=== PATIENT | female | born 1955 | race Caucasian/White ===

== ENCOUNTER 2022-03-24 01:31 | Inpatient (IN) | payer MEDICAID ==
[2022-03-24] VITALS (38 sets, daily range): BP systolic 87–145
[~2022-03-24] VITALS: Ht 165.1 cm; Wt 68.0 kg
--- NOTE | 2022-03-24 01:45 | NUR ---
Pt to bed 1 via EMS w/ c/o AMS and respiratory distress w/ GCS [address] [facility] w/ significant other. LKW: 1300. Pt given 1 mg Narcan at 0143 via IV w/ no response. Pt placed on pads, ekg monitor tech, and pulse oximeter. MD Gaona, Respiratory therapist, and all RNs and EMT staff in ER at bedside. MD Gaona to attempt intubation.
--- NOTE | 2022-03-24 01:48 | NUR ---
BVM applied via MD Gaona due to bradypnea RR @ 4.
--- NOTE | 2022-03-24 01:48 | NUR ---
1 mg Atropine verbal order per MD Candelaria due to HR 47
--- NOTE | 2022-03-24 01:53 | NUR ---
CPR initiated. EPi given. PEA on monitor w/ rate of 87. Refer to code sheet.
[2022-03-24] MEDS ORDERED: ETOMIDATE 20 MG/ 10 ML VIAL (AMIDATE) IVP ONE ×5 (02:15→12:29)
[2022-03-24] MEDS ORDERED: NALOXONE HCL 2 MG/2 ML SYR (NARCAN) IVP ONE (02:15)
[2022-03-24] MEDS ORDERED: PROPOFOL DRIP 100 ML IV ONE ×3 (02:15→17:42)
[2022-03-24] MEDS ORDERED: NACL 0.9% 1,000 ML IV ONE ×3 (02:15→08:15)
--- NOTE | 2022-03-24 02:29 | NUR ---
16 Fr carter placed
--- NOTE | 2022-03-24 02:35 | NUR ---
Pt to CT
[2022-03-24 02:44] LABS: HEMATOCRIT 43.8 % (36-48); HEMOGLOBIN 14.6 g/dL (12.0-16.0); MEAN CORPUSCULAR HEMOGLOBIN 31 pg (27-31); MEAN CORPUSCULAR HGB CONC 33 % (32-36); MEAN CORPUSCULAR VOLUME 94 fL (79.0-98.0); PLATELET COUNT (AUTO) 141 K/uL (130-430); RED BLOOD CELL COUNT(AUTO) 4.68 MIL/uL (4.2-6.2); RED CELL DISTRIBUTION WIDTH 13.1 % (9.0-15.0)
--- NOTE | 2022-03-24 02:45 | NUR ---
Pt back from CT
[2022-03-24] MEDS ORDERED: DEXTROSE 50% JECT 50 ML DISP.SYRIN ONE (02:51)
[2022-03-24] MEDS ORDERED: DEXTROSE 50% JECT 50 ML DISP.SYRIN IVP ONE (03:00)
[2022-03-24 03:03] LABS: ANION GAP 15 (5-15); CALCIUM 9.3 mg/dL (8.4-11.0); CHLORIDE 104 mmol/L (98-107); CREATININE 3.11 mg/dL (0.55-1.30); GFR AFRICAN AMERICAN 19 mL/min (>90); GLUCOSE 68 mg/dL (70-99); POTASSIUM 3.4 mmol/L (3.5-5.1); SODIUM SERUM 136 mmol/L (136-145); UREA NITROGEN, BLOOD 27 mg/dL (8-21)
[2022-03-24 03:05] LABS: WHITE BLOOD COUNT (AUTO) 31.8 K/uL (4.8-10.8)
[2022-03-24 03:06] LABS: BASOPHILS % (MANUAL) 0 % (0-2); EOSINOPHILS % (MANUAL) 1 % (0-7); LYMPHOCYTES % (MANUAL) 32 % (20-46); MONOCYTES % (MANUAL) 17 % (0-11)
[2022-03-24 03:08] LABS: INR 1.4 (0.8-1.2); PROTHROMBIN TIME 14.1 SECS (9.5-12.5)
[2022-03-24 03:11] LABS: ALANINE AMINOTRANSFERASE 29 U/L (12-78); ALBUMIN 3.3 g/dL (3.4-4.8); ASPARTATE AMINOTRANSFERASE 65 U/L (10-37); TOTAL BILIRUBIN 0.7 mg/dL (0.0-1.0)
[2022-03-24 03:17] LABS: ALCOHOL, BLOOD < 3 mg/dL (<10)
[2022-03-24 03:24] LABS: BILIRUBIN,URINE 1+ (NEGATIVE); BLOOD, URINE 2+ (NEGATIVE); CLARITY/URINE CLEAR (CLEAR); COLOR,URINE YELLOW (YELLOW); GLUCOSE,URINE NEGATIVE (NEGATIVE); KETONES,URINE TRACE (NEGATIVE); LEUKOCYTE ESTERASE ,URINE NEGATIVE (NEGATIVE); NITRITE, URINE NEGATIVE (NEGATIVE); PH,URINE 5.5 (5.0-8.0); PROTEIN URINE 1+ (NEGATIVE); UROBILINOGEN,URINE 0.2 (0.2-1.0)
--- NOTE | 2022-03-24 03:28 | NUR ---
Stanley at bedside for EKG at this time
[2022-03-24] MEDS ORDERED: ASPIRIN 300 MG/SUPP.RECT SUPP RC ONE ×2 (03:30→04:35)
[2022-03-24] MEDS ORDERED: LORazepam 2 MG/ML VIAL IVP ONE (03:30)
[2022-03-24] MEDS ORDERED: CEFEPIME 2 GM in D5W 100 ML IV ONE (03:30)
[2022-03-24 03:33] LABS: ACETAMINOPHEN < 1 ug/mL (1-30)
[2022-03-24] MEDS ORDERED: ACETAMINOPHEN 500 MG TABLET ONE (03:41)
--- NOTE | 2022-03-24 03:46 | NUR ---
Refer to MAR for orders
--- NOTE | 2022-03-24 03:46 | NUR ---
MD made aware of BP and temp
[2022-03-24 03:47] LABS: BACTERIA,URINE None Seen /HPF (None Seen); WBC,URINE 0-3 /HPF (0-3)
[2022-03-24 03:53] LABS: BARBITURATE, URINE NEGATIVE (NEG <=200); BENZODIAZEPINE, URINE NEGATIVE (NEG <=150); CANNABINOID, URINE NEGATIVE (NEG <=50); COCAINE, URINE NEGATIVE (NEG <=150); METHAMPHETAMINES SCREEN,URINE NEGATIVE (NEG <=500); OPIATE, URINE NEGATIVE (NEG <=100); PHENCYCLIDINE SCREEN,URINE NEGATIVE (NEG <=25); UR TRICYCLIC ANTIDEPRESSANTS NEGATIVE (NEG <=300); URINE AMPHETAMINE NEGATIVE (NEG <=500); URINE METHADONE NEGATIVE (NEG <=200); URINE OXYCODONE SCREEN NEGATIVE (NEG <=100); URINE PROPOXYPHENE SCREEN NEGATIVE (NEG <=300)
[2022-03-24] MEDS ORDERED: NOREPINEPHRINE 4 MG/4 ML VIAL IV ONE ×2 (03:57→09:23)
[2022-03-24] MEDS ORDERED: NOREPINEPHRINE BITARTRATE 4 MG in NS 246 ML IV ONE ×4 (04:00)
[2022-03-24] MEDS ORDERED: ACETAMINOPHEN 650 MG SUPP.RECT RC ONE (04:00)
[2022-03-24] MEDS ORDERED: KETOROLAC TROMETHAMINE 30 MG VIAL IVP ONE (04:00)
[2022-03-24] MEDS ORDERED: LINEZOLID 300 ML IV ONE (04:00)
[2022-03-24] MEDS ORDERED: HYDROCORTISONE SOD SUCC 100 MG/2 ML VIAL IVP ONE (04:30)
--- NOTE | 2022-03-24 04:41 | NUR ---
MD Gaona at bedside. Report given to MICHOACANO Corey.
--- NOTE | 2022-03-24 05:43 | NUR ---
Assisting Primary, MICHOACANO Corey with entering admission orders.
[2022-03-24] MEDS ORDERED: ACETAMINOPHEN 650 MG SUPP.RECT RC PRN (06:00)
[2022-03-24] MEDS ORDERED: IPRATROPIUM/ALBUTEROL SULFATE 3 ML AMPUL.NEB (DUONEB) INH PRN (06:00)
[2022-03-24] MEDS ORDERED: NACL 0.9% 1,000 ML IV SCH (06:00)
[2022-03-24] MEDS ORDERED: PIPERACILLIN/TAZO 3.375 GM in NS 50 ML IV ONE (06:00)
[2022-03-24] MEDS ORDERED: ONDANSETRON HCL 4 MG/2 ML VIAL IVP PRN (06:00)
--- NOTE | 2022-03-24 06:58 | NUR ---
pt arrived to ICU at 0620.
[2022-03-24] MEDS ORDERED: SODIUM BICARBONATE 8.4% JECT 50 MEQ/50 ML SYRINGE IVP ONE (08:15)
[2022-03-24] MEDS: IPRATROPIUM/ALBUTEROL SULFATE 3 ML AMPUL.NEB (DUONEB) INH SCH ×3 (08:29→21:34)
[2022-03-24] MEDS: PANTOPRAZOLE SODIUM 40 MG/VIAL (PROTONIX) IVP SCH (08:35)
--- NOTE | 2022-03-24 08:46 | NUR ---
pt arrived to ICU at 0620 intubated on propofol and Levophed. Pt's skin is intact, carter cath is empty, and the pt is on levophed to help stabilize her BP. Pt was not given the scheduled zosyn because it was not available in the short time frame but day shift nurse is aware for continued care of the patient.
[2022-03-24] MEDS ORDERED: VANCOMYCIN HCL 1,000 MG in NS 250 ML IV SCH (09:00)
[2022-03-24] MEDS: PROPOFOL DRIP 100 ML IV PRN ×2 (09:15→18:00)
--- NOTE | 2022-03-24 09:20 | NUR ---
PT WAS REINTUBATED ORALLY WITH 7.5 ETT @ 25cm LIP LINE BY DR GARCIA. BILAT B/S, CXR TO FALLOW.
--- NOTE | 2022-03-24 09:30 | NUR ---
Spoke with Dr. Varner and received orders for a stat consult with Dr. Starkey for a SBO.
--- NOTE | 2022-03-24 09:31 | NUR ---
Consult called with Dr. Starkey and I spoke with Renetta. I requested a stat consult two times during the call. She said she would page it out and the MD would get back with me.
[2022-03-24 09:40] LABS: THYROID STIMULATING HORMONE 68.34 uIu/mL (0.36-3.74)
--- NOTE | 2022-03-24 10:00 | NUR ---
Spoke with Dr. Varner who called and requested the consult with Dr. Starkey be cancelled due to wrong pt. Dr. Starkey's exchange notified. I spoke with Greyson.
[2022-03-24] MEDS: NOREPINEPHRINE BITARTRATE 8 MG in D5W 242 ML IV PRN ×2 (10:30→17:00)
[2022-03-24] MEDS ORDERED: ALBUMIN HUMAN 25% 100 ML IV ONE (11:00)
[2022-03-24] MEDS ORDERED: ROCURONIUM BROMIDE 10 MG/ML (ZEMURON) IV ONE (12:28)
[2022-03-24] MEDS: SODIUM BICARBONATE 8.4% JECT 150 MEQ in D5W 1,000 ML IVP SCH ×2 (12:29→20:58)
[2022-03-24] MEDS: HYDROCORTISONE SOD SUCC 100 MG/2 ML VIAL IVP SCH ×2 (15:10→20:58)
[2022-03-24 17:22] LABS: FREE T4 (FREE THYROXINE) 0.8 ng/dl (0.8-1.5)
--- NOTE | 2022-03-24 18:00 | NUR ---
0800- RECEIVED PATIENT ANURIC ON LEVO GTT 0.1 W MAPS 50S. TITRATION ACCORDINGLY TO ORDER. TEMP REPORTEDLY HIGH BUT NOW <98.0 SKIN WARM AND DRY 0830- CALLED DR RADHA MCNEAL 3 AM ABG AND ACIDOSIS. ORDER FOR BICARB AMP 1 IV PUSH AND VENT CHANGES. 0845- SPOKE TO DR PACHECO ABOUT NO UOP , ORDER FOR SALINE BOLUS. 0900- DR GARCIA HERE TO REINTUBATE PATIENT TO ORAL ETT 0920- REINTUBATED BY DR GARCIA 0943- NEW CENTRAL LINE TO LEFT JUGULAR 1015- ANTIBIOTICS GIVEN PER EMAR 1030- NEW LEVO GTT CONCENTRATION TO 8MG/250 SEE IV DRIP TITRATION 1035- DR CARRIZALES IN TO SEE PATIENT ORDER 1115- SPOKE TO DR GARCIA ABOUT ABG AND PEEP BACK TO 0 DUE TO PNEUMO. 1124- SPOKE TO DR MANUEL ABOUT ABG AND ORDER BICARB GTT, LABS IN EVENING 1215- SODIUM BICARB GTT STARTED, NS IVF CHANGE TO KVO 1300- ECHO COMPLETED, PATIENT HAS GOOD CARDIAC FUNCTION 1400- DR MANUEL IN TO SEE PATIENT UOP BRISK. NO FURTHER ORDERS 1630- PATIENT CHANGED ROOM TO ICU 3 1800- LEVO GTT DROPPED TO 0.1MCG DUE TO STABLE BP AND GOOD UOP. LABS TO FOLLOW FOR FOLLOW UP
--- NOTE | 2022-03-24 20:30 | NUR ---
assumed care recd report from todd jimenez rn for continuity of care
[2022-03-24 20:58] LABS: CALCIUM 7.2 mg/dL (8.4-11.0); CREATININE 3.05 mg/dL (0.55-1.30); POTASSIUM 3.8 mmol/L (3.5-5.1)
[2022-03-24 21:07] LABS: ALBUMIN 2.7 g/dL (3.4-4.8); PHOSPHORUS 3.5 mg/dL (2.7-4.5); TOTAL BILIRUBIN 0.6 mg/dL (0.0-1.0)
[2022-03-25] VITALS (45 sets, daily range): BP systolic 90–148
[2022-03-25] MEDS: IPRATROPIUM/ALBUTEROL SULFATE 3 ML AMPUL.NEB (DUONEB) INH SCH ×4 (00:53→19:40)
[2022-03-25] MEDS: PROPOFOL DRIP 100 ML IV PRN ×3 (01:26→17:40)
--- NOTE | 2022-03-25 02:00 | NUR ---
0200 LEVOPHED WEANED TO 0.08 MCG VSS. 0430 CHG BATH GIVEN SKIN CARE, ORAL CARE AND PERICARE DONE, TURN AND REPOSITION TO COMFORT. 0630 S/B DR. BELCHER PUT PEEP 5 CM H2O ON DRE SETTINGS, ADVISED TO SEDATION VACATION AND ASSESS FOR LOC, SHES WAKING UP AND OPENING EYES FOLLOWING COMMANDS AND PURPOSEFUL MOVEMENT NOTED. BACK ON SEDATION ADVISED.
[2022-03-25] MEDS: HYDROCORTISONE SOD SUCC 100 MG/2 ML VIAL IVP SCH ×3 (06:34→21:07)
--- NOTE | 2022-03-25 06:53 | NUR ---
GOT A CALL FROM [facility] IS POSITIVE
[2022-03-25 07:25] LABS: BASOPHILS # (AUTO) 0.1 K/uL (0.0-0.2); BASOPHILS % (AUTO) 0.3 % (0.0-2.0); HEMATOCRIT 39.6 % (36-48); HEMOGLOBIN 13.9 g/dL (12.0-16.0); LYMPHOCYTES # (AUTO) 1.3 K/uL (1.0-5.5); LYMPHOCYTES % (AUTO) 5.2 % (20.5-51.5); MEAN CORPUSCULAR HEMOGLOBIN 32 pg (27-31); MEAN CORPUSCULAR HGB CONC 35 % (32-36); MEAN CORPUSCULAR VOLUME 92 fL (79.0-98.0); NEUTROPHILS # (AUTO) 21.9 K/uL (1.8-7.7); PLATELET COUNT (AUTO) 86 K/uL (130-430); RED BLOOD CELL COUNT(AUTO) 4.33 MIL/uL (4.2-6.2); RED CELL DISTRIBUTION WIDTH 13.6 % (9.0-15.0); WHITE BLOOD COUNT (AUTO) 25.3 K/uL (4.8-10.8)
[2022-03-25 07:47] LABS: CREATININE 3.29 mg/dL (0.55-1.30); POTASSIUM 3.4 mmol/L (3.5-5.1)
[2022-03-25] MEDS ORDERED: HEPARIN SODIUM,PORCINE 5,000 UNITS/ML VIAL SUBCUT ONE (08:00)
[2022-03-25] MEDS ORDERED: NS 500 ML IV ONE (08:00)
[2022-03-25 08:04] LABS: CALCIUM 6.9 mg/dL (8.4-11.0)
[2022-03-25 08:07] LABS: ALBUMIN 2.5 g/dL (3.4-4.8); TOTAL BILIRUBIN 0.5 mg/dL (0.0-1.0)
[2022-03-25 08:50] LABS: NEUTROPHILS % (AUTO) 86.5 % (40.0-70.0)
[2022-03-25] MEDS: SODIUM BICARBONATE 8.4% JECT 150 MEQ in D5W 1,000 ML IVP SCH ×3 (09:46→23:43)
[2022-03-25] MEDS: PIPERACILLIN/TAZO 2.25G/DEX-IS 50 ML IV SCH ×4 (09:47→23:42)
[2022-03-25] MEDS: PANTOPRAZOLE SODIUM 40 MG/VIAL (PROTONIX) IVP SCH (09:59)
[2022-03-25] MEDS: LEVOTHYROXINE SODIUM 0.1 MG VIAL IVP SCH (10:00)
[2022-03-25] MEDS ORDERED: DEXTROSE 50%-WATER 50 ML DISP.SYRIN IVP PRN (10:30)
[2022-03-25] MEDS ORDERED: D5W 1,000 ML IV PRN (10:30)
[2022-03-25] MEDS ORDERED: GLUCOSE (DEXTROSE) ORAL GEL -Adults PO PRN (10:30)
[2022-03-25] MEDS ORDERED: INSULIN GLARGINE 100 UNITS/ML 10 ML VIAL SUBCUT ONE (10:45)
[2022-03-25] MEDS ORDERED: TOCILIZUMAB 400 MG in NS 100 ML IV ONE (11:00)
--- NOTE | 2022-03-25 11:22 | NUR ---
0955 TITRATED FI02 TO .30. SAT 95% RN AWARE. Addendum: 03/25/22 at 1122 by Joslyn Begum RT Amended: Links added.
--- NOTE | 2022-03-25 11:43 | NUR ---
ASSISTANT PROFESSOR OF DRAMA ACSW Sharri responded to a generated Social Service referral and reviewed previous notes and assessments an recognized missing contacts and patient information. ACSW consulted with assigned MICHOACANO Beauchamp who also shared they do not have contact information nor information related to patient's health history. ACSW consulted with Azul from admitting who provided PCP information. In an effort to obtain contact info for family and health information, ACSW contacted PCP [facility] . Amber with Kir[facility] shared they have patient listed as homeless, and provided the following numbers; - - NO ANSWER - - "NOT ABLE TO ACCEPTS CALLS AT THIS TIME" recording - [phone] - Jesus, listed as emergency contact, NON WORKING NUMBER Amber will also be faxing a their facesheet with patient's medical info. ACSW will continue to be available as needed Addendum: 03/25/22 at 1203 by Sharri GOETZ VILMA Harrell received fax from [facility] containing medical information. Copy was provided to DOG HAIR CLIPPERMICHOACANO Beauchamp and Photovoltaic Subcontractor Rosa for review. ACSW will continue to be available as needed
--- NOTE | 2022-03-25 12:41 | NUR ---
INFORMED BY LAB OF D-DIMER >5000. INFORMED PT'S PRIMARY RN CH OF RESULTS.
[2022-03-25] MEDS: AZITHROMYCIN 500 MG in NS 250 ML IV SCH (13:13)
[2022-03-25] MEDS: HEPARIN SODIUM,PORCINE 5,000 UNITS/ML VIAL SUBCUT SCH ×2 (13:16→21:10)
[2022-03-25 13:25] LABS: C-REACTIVE PROTEIN QUANT 44.6 mg/dL (0-0.5)
--- NOTE | 2022-03-25 15:41 | NUR ---
Wound Evaluation: Wound Consult ordered for Low Rosendo Score. Patient evaluated for a low Rosendo score of 14. Patient was sedated, nonverbal, nonresponsive to verbal commands, and received in a [place] Bed with an Atmos-Air 9000 mattress. Patient needs to be turned in bed. Skin is intact. Recommend reposition patient every 2 hours with pillow support. Elevate, off-load and float bilateral heels with pillows. Offload pressure areas with pillows for pressure re-distribution. Perform skin care and monitor skin integrity Q shift. Use moisture barrier cream on moisture susceptible areas QID and PRN for soiling. Place patient on a low air-loss mattress.
--- NOTE | 2022-03-25 22:00 | NUR ---
restless and keep moving in bed sedation propofol increased to 40mcg.,suctioned secretions obtain large kim brownish secretions via ett.
[2022-03-26] VITALS (42 sets, daily range): BP systolic 92–133
[2022-03-26] MEDS: IPRATROPIUM/ALBUTEROL SULFATE 3 ML AMPUL.NEB (DUONEB) INH SCH ×5 (02:58→23:21)
[2022-03-26] MEDS: PROPOFOL DRIP 100 ML IV PRN ×3 (05:15→18:30)
[2022-03-26] MEDS: PIPERACILLIN/TAZO 2.25G/DEX-IS 50 ML IV SCH ×4 (05:15→23:26)
[2022-03-26] MEDS: HEPARIN SODIUM,PORCINE 5,000 UNITS/ML VIAL SUBCUT SCH ×3 (05:17→21:25)
[2022-03-26] MEDS: HYDROCORTISONE SOD SUCC 100 MG/2 ML VIAL IVP SCH ×3 (05:17→21:25)
[2022-03-26 06:13] LABS: CREATININE 2.35 mg/dL (0.55-1.30)
[2022-03-26 06:20] LABS: BASOPHILS % (AUTO) 0.1 % (0.0-2.0); HEMATOCRIT 31.4 % (36-48); HEMOGLOBIN 11.2 g/dL (12.0-16.0); LYMPHOCYTES # (AUTO) 0.7 K/uL (1.0-5.5); LYMPHOCYTES % (AUTO) 4.7 % (20.5-51.5); MEAN CORPUSCULAR HEMOGLOBIN 32 pg (27-31); MEAN CORPUSCULAR HGB CONC 36 % (32-36); MEAN CORPUSCULAR VOLUME 89 fL (79.0-98.0); MONOCYTES # (AUTO) 0.5 K/uL (0.0-1.0); MONOCYTES % (AUTO) 3.5 % (1.7-9.3); NEUTROPHILS # (AUTO) 12.8 K/uL (1.8-7.7); NEUTROPHILS % (AUTO) 91.7 % (40.0-70.0); PLATELET COUNT (AUTO) 53 K/uL (130-430); RED BLOOD CELL COUNT(AUTO) 3.54 MIL/uL (4.2-6.2); RED CELL DISTRIBUTION WIDTH 13.6 % (9.0-15.0)
--- NOTE | 2022-03-26 06:25 | NUR ---
S/B Dr. Conroy on rounds,ordered to stop bicarb gtt and start tube feeding.
[2022-03-26 06:26] LABS: POTASSIUM 2.2 mmol/L (3.5-5.1)
[2022-03-26 06:27] LABS: ALBUMIN 2.2 g/dL (3.4-4.8); CALCIUM 6.4 mg/dL (8.4-11.0); TOTAL BILIRUBIN 0.6 mg/dL (0.0-1.0)
--- NOTE | 2022-03-26 06:35 | NUR ---
lab called for critical lab k-2.2 and Ca-6.[address] bui made him aware advised to call neprologist on the case. paged Dr. ramos awaiting for call back.
--- NOTE | 2022-03-26 06:43 | NUR ---
Called Dr Bang exchanged Dr alcocer is customer service consultant awaiting to call back.
[2022-03-26] MEDS ORDERED: POTASSIUM CHLORIDE 20 MEQ/PKT PACKET PO ONE (07:30)
[2022-03-26] MEDS ORDERED: NS 500 ML IV ONE (07:30)
[2022-03-26] MEDS: NACL 0.9% 1,000 ML IV SCH ×3 (08:31→23:27)
[2022-03-26] MEDS: PANTOPRAZOLE SODIUM 40 MG/VIAL (PROTONIX) IVP SCH (08:33)
[2022-03-26] MEDS: LEVOTHYROXINE SODIUM 0.1 MG VIAL IVP SCH (08:34)
[2022-03-26] MEDS: INSULIN GLARGINE 100 UNITS/ML 10 ML VIAL SUBCUT SCH (08:40)
[2022-03-26] MEDS: POTASSIUM CHLORIDE 40 MEQ in NS 250 ML IV SCH ×2 (08:41→13:23)
[2022-03-26] MEDS: ALBUMIN HUMAN 25% 50 ML IV SCH ×3 (10:33→18:28)
[2022-03-26] MEDS: AZITHROMYCIN 500 MG in NS 250 ML IV SCH (10:35)
--- NOTE | 2022-03-26 12:57 | NUR ---
Nutritional Screening High Risk Screening Consult Admitting Diagnosis Acute Respiratory Failure Reviewed Pertinent Medical/Surgical Hx Medical Record Medical History Comment: Per EMR: 66yF [facility] resident who presented to ED for increasingly altered mental status 03/24. Patient was given chest compressions in ED, intubated nasally, now intubated orally on vent. PMH includes: HTN, HLD, [place]'s dz, Hep C+, depression, osteoporosis/osteoarthritis, fibromyalgia, s/p lumbar spine surgery causing chronic pain. During admit: acute on CKD, elevated liver enzymes, thrombocytopenia, and dysphagia (given intubation/vent), resiratory failure, lactic acidosis, septic shock. SARS-CoV-2 Ag (rapid) Positive 03/25 Subjective Information Nutrition consult recieved for TF recommendations. Pt seen/discussed in ICU rounds. Propofol running @ 16.3 mL/hr (provides 430 additional kcal/day). Per discussion with primary RN, propofol will possibly be d/c tomorrow. Per am rounds, Levo d/c >24hrs ago, NS running @ 125mL and MD plans to give patient albumin today. Patient serum glucose has been trending extremely high, with BS consistently ranging >300-500. NGT in place, TF running Jevity 1.5 @ 20mL/hr. Current TF + Propofol regimen provides: 1150 kcal, 31g pro, and 365mL FW. Current Diet Order/Nutrition Support Jevity 1.5 @ 20mL x 24 hr (x 1 day) Patient/Significant Other Unable To Verbalize Education Provided Not Indicated Pertinent Medications KCl/NaCl, Albumim, Heparin, Synthroid, abx, hydrocortisone, prop, protonix Pertinent Labs Glu 328/511H, WBC 14H, RBC 3.5L, h/h 11.2/31.4L, K 2.2L, BUN/Cr 24/2.3H, Height (Feet) 5 feet Height (Inches) 5.00 inches Weight (Pounds) 150 pounds Weight (Calculated Kilograms) 68.957910 kilograms Patient Weight 68.039 kg Body Mass Index 24.96 kg/m2 %IBW [address] [place]/Adjusted Body Weight 125lb/57kg Recent Weight Change Unable to Verify Weight Status Appropriate Gastrointestinal Symptoms None Last Bowel Movement None since admit Difficulty With: Swallowing (intubation/vent) Food Allergies Unable to Verify Cultural/Ethnic/Buddhist Belief Unable to Verify Usual Diet At Home Unable to Verify Skin Integrity Comment: Rosendo 15: Skin Intact Current % PO Fair (50-74%) Estimated Energy Expenditure (kcals/day) 6895-5887 (25-30 kcal/kg d/t Normal BMI, vent) Estimated Protein Required (g/day) 54-68 (0.8-1.0 d/t acute on CKD) Estimated Fluid Required (l/day) per MD d/t acute on CKD Problem/Etiology/Signs/Symptoms * Altered nutrition-related lab values r/t suspected steroid medication a/e/b elevated glucose labs 03/25; 328, 511 (Initial) * Inadequate oral intake r/t TF order a/e/b current TF order provides <75% of low range est kcal needs and <60% of low range est protein needs (Initial) Expected Outcomes/Goals Enteral nutrition provides >85% of estimated nutrient needs, tolerate TF @ goal rate, BM q 1-3 days. skin integrity, weight maintenance Dietitian Recommendations * Consider adjust TF regimen: Glucerna 1.2 @ 50mL x 24h. --TF provides 1440 kcal (1870kcal w/propofol), 72g pro, and 966 FW. --This will provide patient with 100% estimated kcal and protein needs. * Rec Covid supplements: daily renavite, 250mg vitamin C, vitamin D, zincate 220mg BID x 14 days * Rec PRN bowel regimen Follow Up High Risk: F/U in 2-3days Follow Up By Mar 29, 2022 Alert Not Indicated Addendum: 03/26/22 at [address] Amended: Links added.
[2022-03-26] MEDS ORDERED: TOCILIZUMAB 400 MG in NS 100 ML IV ONE (13:00)
--- NOTE | 2022-03-26 13:01 | NUR ---
Dietitian Recommendations * Consider adjust TF regimen: Glucerna 1.2 @ 50mL x 24h. --TF provides 1440 kcal (1870kcal w/propofol), 72g pro, and 966 FW. --This will provide patient with 100% estimated kcal and protein needs. * Rec Covid supplements: daily renavite, 250mg vitamin C, vitamin D, zincate 220mg BID x 14 days * Rec PRN bowel regimen Please see Nutritional Assessment for details, thanks! CC, MPH, RDN
[2022-03-26] MEDS ORDERED: VANCOMYCIN HCL 500 MG in NS 100 ML IV SCH (14:00)
--- NOTE | 2022-03-26 19:00 | NUR ---
ASSUMED CARE RECD REPORT FROM MICHOACANO CH FOR CONTINUITY OF CARE.
--- NOTE | 2022-03-26 22:22 | NUR ---
2129 DUE MEDS GIVEN, TRANSFER TO RM 1 FOR ISOLATION NEGATIVE PRESSURE ROOM.REPORT GIVEN TO MARISSA RÍOS FOR CONTINUITY OF CARE.
--- NOTE | 2022-03-26 23:00 | NUR ---
TOOK OVER CARE BACK FROM [facility] FOR CONTINUITY OF CARE.
[2022-03-27] VITALS (32 sets, daily range): BP systolic 109–154
[2022-03-27] MEDS: PIPERACILLIN/TAZO 2.25G/DEX-IS 50 ML IV SCH (05:51)
[2022-03-27] MEDS: HYDROCORTISONE SOD SUCC 100 MG/2 ML VIAL IVP SCH ×3 (05:51→21:40)
[2022-03-27] MEDS: HEPARIN SODIUM,PORCINE 5,000 UNITS/ML VIAL SUBCUT SCH ×3 (05:52→21:38)
--- NOTE | 2022-03-27 06:07 | NUR ---
0430 CHG BATH DONE, PERICARE, SKIN CARE, ORAL SUCTIONED AND ORAL CARE DONE, TURN AND LINEN CHANGED AND REPOSITION TO COMFORT.
[2022-03-27 06:36] LABS: BASOPHILS % (AUTO) 0.3 % (0.0-2.0); EOSINOPHILS % (AUTO) 0.1 % (0.0-4.0); HEMATOCRIT 31.8 % (36-48); HEMOGLOBIN 11.4 g/dL (12.0-16.0); LYMPHOCYTES # (AUTO) 0.6 K/uL (1.0-5.5); LYMPHOCYTES % (AUTO) 5.6 % (20.5-51.5); MEAN CORPUSCULAR HEMOGLOBIN 32 pg (27-31); MEAN CORPUSCULAR HGB CONC 36 % (32-36); MEAN CORPUSCULAR VOLUME 90 fL (79.0-98.0); MONOCYTES # (AUTO) 0.4 K/uL (0.0-1.0); MONOCYTES % (AUTO) 3.6 % (1.7-9.3); NEUTROPHILS # (AUTO) 9.2 K/uL (1.8-7.7); NEUTROPHILS % (AUTO) 90.4 % (40.0-70.0); PLATELET COUNT (AUTO) 50 K/uL (130-430); RED BLOOD CELL COUNT(AUTO) 3.52 MIL/uL (4.2-6.2); RED CELL DISTRIBUTION WIDTH 13.6 % (9.0-15.0); WHITE BLOOD COUNT (AUTO) 10.1 K/uL (4.8-10.8)
--- NOTE | 2022-03-27 07:30 | NUR ---
ASSUMED CARE RECD REPORT FROM MICHOACANO MILLS FOR CONTINUITY OF CARE.
[2022-03-27] MEDS: IPRATROPIUM/ALBUTEROL SULFATE 3 ML AMPUL.NEB (DUONEB) INH SCH ×3 (07:42→19:42)
[2022-03-27] MEDS: LEVOTHYROXINE SODIUM 0.1 MG VIAL IVP SCH (08:54)
[2022-03-27] MEDS: PANTOPRAZOLE SODIUM 40 MG/VIAL (PROTONIX) IVP SCH (08:54)
[2022-03-27] MEDS: AZITHROMYCIN 500 MG in NS 250 ML IV SCH (08:55)
[2022-03-27] MEDS: INSULIN GLARGINE 100 UNITS/ML 10 ML VIAL SUBCUT SCH (08:58)
[2022-03-27 09:26] LABS: ALBUMIN 2.8 g/dL (3.4-4.8); CREATININE 1.63 mg/dL (0.55-1.30)
[2022-03-27] MEDS: NACL 0.9% 1,000 ML IV SCH ×3 (09:38→23:19)
[2022-03-27 10:50] LABS: CALCIUM 6.3 mg/dL (8.4-11.0); POTASSIUM 2.6 mmol/L (3.5-5.1)
--- NOTE | 2022-03-27 11:00 | NUR ---
Received call from dr. Marquez updated patient current condition and poc.
[2022-03-27] MEDS ORDERED: KCL 20 mEq in 100 mL (PREMIX) 100 ML IV ONE (11:30)
[2022-03-27] MEDS ORDERED: KCL 40 mEq in 100 mL (PREMIX) 100 ML IV ONE (11:30)
[2022-03-27] MEDS: PROPOFOL DRIP 100 ML IV PRN ×2 (11:55→15:30)
[2022-03-27] MEDS ORDERED: POTASSIUM CHLORIDE 20 MEQ/PKT PACKET PO ONE (12:00)
[2022-03-27] MEDS: NAFCILLIN SODIUM 2 GM in NS 100 ML IV SCH ×3 (12:03→23:19)
[2022-03-27] MEDS ORDERED: DEXMEDETOMIDINE HCL 400 MCG in NS 96 ML IV PRN (12:30)
[2022-03-27] MEDS ORDERED: POTASSIUM CHLORIDE 60 MEQ in NS 500 ML IV ONE (13:00)
--- NOTE | 2022-03-27 15:00 | NUR ---
HYGIENE: Patient had large greenish color bowel movement, good pericare provided. chg provided. Patient repositioned by staff every 2 hours with pillow support.OGT inserted. placement confirmed. pt has schedule for CT of the neck.
--- NOTE | 2022-03-27 16:35 | NUR ---
ENDORSED CARE TO CHICHI RN.
--- NOTE | 2022-03-27 18:00 | NUR ---
CT SCAN OF NECK DONE.
--- NOTE | 2022-03-27 18:10 | NUR ---
rt notes [address] scan via BVM 15L, no incident happened. pt saturating 98%.
--- NOTE | 2022-03-27 19:25 | NUR ---
BEDSIDE REPORT GIVEN TO LINA RÍOS.
[2022-03-28] VITALS (36 sets, daily range): BP systolic 119–165
[2022-03-28] MEDS: IPRATROPIUM/ALBUTEROL SULFATE 3 ML AMPUL.NEB (DUONEB) INH SCH ×4 (01:00→19:45)
[2022-03-28] MEDS: PROPOFOL DRIP 100 ML IV PRN (05:08)
[2022-03-28] MEDS: HYDROCORTISONE SOD SUCC 100 MG/2 ML VIAL IVP SCH ×3 (05:12→22:43)
[2022-03-28] MEDS: NAFCILLIN SODIUM 2 GM in NS 100 ML IV SCH ×3 (05:12→18:21)
[2022-03-28] MEDS: HEPARIN SODIUM,PORCINE 5,000 UNITS/ML VIAL SUBCUT SCH ×3 (05:13→22:51)
--- NOTE | 2022-03-28 06:28 | NUR ---
1999 PRECEDEX STARTED AT 0.2 MCG TOLERATING WELL PROPOFOL WEANING TOLERATED. VSS,AFEBRILE. TOLERATING TUBE FEEDING. HAD BMX1. 0400 CHG BATH DONE, TURN AND REPOSITION TO COMFORT.PROPOFOL WEAN TO 15 MCG TOLERATING WELL.
[2022-03-28 06:38] LABS: HEMATOCRIT 34.5 % (36-48); HEMOGLOBIN 12.1 g/dL (12.0-16.0); MEAN CORPUSCULAR HEMOGLOBIN 32 pg (27-31); MEAN CORPUSCULAR HGB CONC 35 % (32-36); MEAN CORPUSCULAR VOLUME 92 fL (79.0-98.0); PLATELET COUNT (AUTO) 57 K/uL (130-430); RED BLOOD CELL COUNT(AUTO) 3.77 MIL/uL (4.2-6.2); RED CELL DISTRIBUTION WIDTH 14.2 % (9.0-15.0); WHITE BLOOD COUNT (AUTO) 7.4 K/uL (4.8-10.8)
[2022-03-28 06:57] LABS: ALBUMIN 2.3 g/dL (3.4-4.8); CREATININE 1.32 mg/dL (0.55-1.30); PHOSPHORUS 3.1 mg/dL (2.7-4.5); POTASSIUM 3.8 mmol/L (3.5-5.1)
[2022-03-28] MEDS: NACL 0.9% 1,000 ML IV SCH (07:44)
[2022-03-28 08:12] LABS: CALCIUM 5.9 mg/dL (8.4-11.0); TOTAL BILIRUBIN 1.7 mg/dL (0.0-1.0)
[2022-03-28] MEDS: PANTOPRAZOLE SODIUM 40 MG/VIAL (PROTONIX) IVP SCH (09:02)
[2022-03-28] MEDS: LEVOTHYROXINE SODIUM 0.1 MG VIAL IVP SCH (09:06)
[2022-03-28] MEDS: INSULIN GLARGINE 100 UNITS/ML 10 ML VIAL SUBCUT SCH (09:13)
[2022-03-28] MEDS: AZITHROMYCIN 500 MG in NS 250 ML IV SCH (09:15)
[2022-03-28] MEDS ORDERED: FLOR.1 GT (11:11)
[2022-03-28] MEDS ORDERED: HYDR20TA PO (11:11)
[2022-03-28] MEDS ORDERED: PRO40 PO (11:11)
[2022-03-28] MEDS ORDERED: CALCIUM CHLORIDE 1 GM in NS 100 ML IV ONE (12:00)
[2022-03-28] MEDS: 0.45% NACL 1,000 ML IV SCH ×2 (12:24→22:42)
[2022-03-28 14:10] LABS: BAND % (MANUAL) 10 % (0-6); BASOPHILS % (MANUAL) 0 % (0-2); EOSINOPHILS % (MANUAL) 0 % (0-7); LYMPHOCYTES % (MANUAL) 10 % (20-46); MONOCYTES % (MANUAL) 7 % (0-11)
[2022-03-29] VITALS (30 sets, daily range): BP systolic 90–151
[2022-03-29] MEDS: NAFCILLIN SODIUM 2 GM in NS 100 ML IV SCH ×4 (00:46→17:39)
[2022-03-29] MEDS: IPRATROPIUM/ALBUTEROL SULFATE 3 ML AMPUL.NEB (DUONEB) INH SCH ×4 (01:05→23:25)
[2022-03-29] MEDS: HYDROCORTISONE SOD SUCC 100 MG/2 ML VIAL IVP SCH ×3 (06:33→21:31)
[2022-03-29] MEDS: HEPARIN SODIUM,PORCINE 5,000 UNITS/ML VIAL SUBCUT SCH ×3 (06:34→21:34)
--- NOTE | 2022-03-29 07:12 | NUR ---
RECEIVED REPORT FROM ENDORSING MANAGER NET RN FOR CONTINUITY OF CARE, PATIENT IS LYING ON BED WITH AN ivf OF 0.45 ns @ 100 MLS/HR.dIPRIVAN AT 20 MCG/KG/MIN, ON ac RATE OF 24, TIDAL VOLUME 400, fIO2 30 AND pEEP OF 3, tUBE FEEDING OF gLUCERNA 1.2 @ 35. SINGH CATHETER IN PLACE, YELLOW URINE IN COLOR DRAINING TO GRAVITY, VITAL SIGNS HEART RATE 50, RESPIRATORY RATE 24, OXYGEN SATURATION 91 AND BLOOD PRESSURE 108/44. NO SIGNS OF ACUTE DISTRESS NOTED AT THIS TIME. WILL CONTINUE TO MONITOR/
[2022-03-29] MEDS: 0.45% NACL 1,000 ML IV SCH ×2 (08:00→15:09)
[2022-03-29 08:11] LABS: ALBUMIN 2.4 g/dL (3.4-4.8); CREATININE 1.13 mg/dL (0.55-1.30)
[2022-03-29 08:42] LABS: POTASSIUM 2.6 mmol/L (3.5-5.1)
[2022-03-29 08:43] LABS: CALCIUM 6.8 mg/dL (8.4-11.0)
[2022-03-29] MEDS: PANTOPRAZOLE SODIUM 40 MG/VIAL (PROTONIX) IVP SCH (09:39)
[2022-03-29] MEDS: LEVOTHYROXINE SODIUM 0.1 MG VIAL IVP SCH (09:47)
[2022-03-29] MEDS: AZITHROMYCIN 500 MG in NS 250 ML IV SCH (09:47)
[2022-03-29] MEDS: INSULIN GLARGINE 100 UNITS/ML 10 ML VIAL SUBCUT SCH (10:22)
[2022-03-29] MEDS: PROPOFOL DRIP 100 ML IV PRN ×2 (10:23→21:43)
[2022-03-29] MEDS: NOREPINEPHRINE BITARTRATE 8 MG in D5W 242 ML IV PRN (10:33)
--- NOTE | 2022-03-29 10:33 | NUR ---
LEVOPHED STARTED AT 0.1 MCG/KG/MIN. PATIENT BLOOD PRESSURE IS 83/38, HEART RATE 63 AND OXYGEN SATURATION 95.
[2022-03-29] MEDS ORDERED: POTASSIUM CHLORIDE IV ONE (11:00)
[2022-03-29] MEDS ORDERED: NS 0.45% IV ONE (11:00)
[2022-03-29] MEDS ORDERED: CALCIUM CHLORIDE 1 GM in NS 100 ML IV ONE (11:30)
--- NOTE | 2022-03-29 15:56 | NUR ---
Nutrition F/U Admitting Diagnosis Acute Respiratory Failure Reviewed Pertinent Medical/Surgical Hx Medical Record Medical History Comment: Per EMR: 66 YOF [facility] 6 resident who presented to ED for increasingly altered mental status 03/24. Patient was given chest compressions in ED, intubated nasally, now intubated orally on vent. PMH includes: HTN, HLD, [place]'s dz, Hep C+, depression, osteoporosis/osteoarthritis, fibromyalgia, s/p lumbar spine Sx causing chronic pain. During admit: acute on CKD, elevated liver enzymes, thrombocytopenia, and dysphagia (given intubation/vent), respiratory failure, lactic acidosis, septic shock. SARS-CoV-2 Ag (Rapid) Positive 03/25 & COVID-19 ([facility]) Positive 03/26 Subjective Information: RD attended ICU rounds this morning. Per primary RN report, pt remains COVID+ under airborne isolation precautions; new orders for restraints; GRV 50 ml, tolerating TF well, Glucerna 1.2 at 35 ml/hr; water flush 150 ml Q6h; remains intubated/sedated on vent support; UO good w/ 700 ml out last night and 1 green/watery stool yesterday. RD witnessed TF infusing through glass window. Per EMR review, TF Intakes: 420 ml 03/29; TF Rate: 35 ml/hr 03/29; Glucerna 1.2 infusing 03/29; abd is soft w/ active bowel souns; LBM x1 03/29; new orders to increase TF rate to 50 ml/hr per GI notes/order. Current TF prescription is adequate/appropriate. Current Diet Order/Nutrition Support: Glucerna 1.2 at 50 ml/hr, Free Water Flush: 150 via OGT x0 days Patient/Significant Other Unable To Verbalize Education Provided Not Indicated Pertinent Medications: lantus, keppra, synthroid, solu-cortef, propofol at 8.165 ml/hr, protonix IV, levophed Pertinent Labs: BG 124 H, POC BG 167 H, WBC 7.4 WNL, RBC 3.77 L, H/H 12.1 WNL/34.5 L, K 2.6 L, BUN 28 H, CRE 1.13 WNL Height (Feet) 5 feet Height (Inches) 5.00 inches Weight (Pounds) 150 pounds -- stable since 03/26 Patient Weight 68.039 kg Body Mass Index 24.96 kg/m2 %IBW [address] [place]/Adjusted Body Weight 125#/57 kg Recent Weight Change Unable to Verify Weight Status Appropriate Gastrointestinal Symptoms None Difficulty With: Swallowing Food Allergies Unable to Verify Cultural/Ethnic/Gnosticism Belief Unable to Verify Usual Diet At Home Unable to Verify Skin Integrity Comment: Rosendo 14; per Rehabilitation Medicine Physician note 03/25: skin is intact Estimated Energy Expenditure (kcals/day) 6228-8616 (25-30 kcal/kg CBW d/t Normal BMI, vent) NEW Estimated Protein Required (g/day) 54-82 (0.8-1.2 gm/kg CBW d/t acute on CKD, acute illness) Estimated Fluid Required (l/day) Per MD d/t CKD Problem/Etiology/Signs/Symptoms Altered nutrition-related lab values r/t suspected steroid medication a/e/b elevated glucose labs. *Ongoing w/ improvement Inadequate oral intake r/t TF order a/e/b current TF order provides <75% of low range est kcal needs and <60% of low range est protein needs. *Met Expected Outcomes/Goals Enteral nutrition provides >85% of estimated nutrient needs, tolerate TF at goal rate, BM q 1-3 days, skin integrity, weight maintenance Dietitian Recommendations * Continue Glucerna 1.2 at 50 ml/hr via OGT Provides (w/ current propofol infusion rate: 1656 kcal/day, 72 gm protein/day, and 966 ml free water/day Meets (w/ current propofol infusion rate): 97% of lower end of estimated caloric needs and 88% of upper end of estimated protein needs * Free Water Flush: per physician d/t CKD * COVID supplements: daily renavite, 250 mg VIT C, VIT D, zincate 220 mg BID x14 days Follow Up High Risk: F/U in 2-3 days
--- NOTE | 2022-03-29 16:06 | NUR ---
Dietitian Recommendations * Continue Glucerna 1.2 at 50 ml/hr via OGT Provides (w/ current propofol infusion rate: 1656 kcal/day, 72 gm protein/day, and 966 ml free water/day Meets (w/ current propofol infusion rate): 97% of lower end of estimated caloric needs and 88% of upper end of estimated protein needs * Free Water Flush: per physician d/t CKD * COVID supplements: daily renavite, 250 mg VIT C, VIT D, zincate 220 mg BID x14 days LP, MS, RD Please refer to Nutrition F/U for details.
[2022-03-29] MEDS: KCL 20 mEq in D5W 1000 mL 1,000 ML IV SCH (17:39)
[2022-03-30] VITALS (23 sets, daily range): BP systolic 126–171
[2022-03-30] MEDS: NAFCILLIN SODIUM 2 GM in NS 100 ML IV SCH ×4 (00:58→17:35)
[2022-03-30] MEDS: KCL 20 mEq in D5W 1000 mL 1,000 ML IV SCH ×3 (01:15→22:47)
[2022-03-30] MEDS: HYDROCORTISONE SOD SUCC 100 MG/2 ML VIAL IVP SCH ×3 (06:52→22:47)
[2022-03-30] MEDS: HEPARIN SODIUM,PORCINE 5,000 UNITS/ML VIAL SUBCUT SCH ×3 (06:55→22:48)
--- NOTE | 2022-03-30 07:04 | NUR ---
RECEIVED REPORT FROM ENDORSING SENIOR EDITOR RN FOR CONTINUITY OF CARE, PATIENT LYING ON BED WITH AN IVF OF KCL 20MEQ IN D5 @ 100 ML/HR.DIPRIVAN @ 10 MCG/KG/MIN. ON AC RATE OF 24, TIDAL VOLUME 400, FIO2 OF 35 AND PEEP OF 5, RESTRAINTS IN PLACE IN BOTH WRIST, TUBE FEEDING IN PLACE GLUCERNA 1.2 @ 35 CC/HR, CHECKED RESIDUAL . SINGH CATHETER IN PLACE, YELLOW URINE COLOR DRAINING TO GRAVITY, VITALS SIGNS HEART RATE 56, RESPIRATORY RATE 25, OXYGEN SATURATION 97, TEMPERATURE 97.6, BLOOD PRESSURE 140/62. NO SIGNS OF ACUTE DISTRESS NOTED AT THIS TIME, WILL CONTINUE TO MONITOR.
[2022-03-30 07:17] LABS: CALCIUM 7.3 mg/dL (8.4-11.0); CREATININE 1.06 mg/dL (0.55-1.30)
[2022-03-30 08:08] LABS: POTASSIUM 2.9 mmol/L (3.5-5.1)
[2022-03-30] MEDS: IPRATROPIUM/ALBUTEROL SULFATE 3 ML AMPUL.NEB (DUONEB) INH SCH ×3 (08:08→20:21)
--- NOTE | 2022-03-30 08:21 | NUR ---
0750 PLACED PT ON CPAP 5 PS 10. RN AWARE. PT TOLERATING. Addendum: 03/30/22 at 0822 by Joslyn Begum RT Amended: Links added.
[2022-03-30] MEDS ORDERED: D5W IV ONE (09:00)
[2022-03-30] MEDS ORDERED: POTASSIUM CHLORIDE IV ONE (09:00)
[2022-03-30] MEDS: PANTOPRAZOLE SODIUM 40 MG/VIAL (PROTONIX) IVP SCH (09:43)
[2022-03-30] MEDS: LEVOTHYROXINE SODIUM 0.1 MG VIAL IVP SCH (09:44)
--- NOTE | 2022-03-30 09:53 | NUR ---
STARTED CPAP 5, PRESSURE SUPPORT 10 30% STARTED AT 0750 AND LASTED AT 0953, PATIENT OXYGEN SATURATION 96-98%
[2022-03-30] MEDS: INSULIN GLARGINE 100 UNITS/ML 10 ML VIAL SUBCUT SCH (10:01)
--- NOTE | 2022-03-30 10:25 | NUR ---
IS AT THE BEDSIDE ASSESSING THE PATIENT, ORDERED TO HOLD THE DIPRIVAN AND STARTED AGAIN THE CPAP TRIAL 5, PRESSURE SUPPORT 10. PATIENT HEASRT RATE 57, RESPIRATORY RATE 15, BLOOD PRESSURE 148/71 AND OXYGEN SATURATION 97. WILL CONTINUE TO MONITOR.
--- NOTE | 2022-03-30 10:45 | NUR ---
rt notes 0925 titrated FIO2 to 30%. Per MD Conroy do ABG on CPAP mode. will cont to monitor pt.
[2022-03-30] MEDS: POTASSIUM CHLORIDE IV SCH ×3 (10:53→14:54)
[2022-03-30] MEDS: [UNRECOGNIZED DRUG - OTHER] IV SCH ×3 (10:53→14:54)
--- NOTE | 2022-03-30 16:00 | NUR ---
RT NOTES 1600 Pt got extubated, placed on 3LNC. pt saturating 94%. sxn'd pt prior/post extubation (small/thick/yellow) secretions. No resp distress noted. Encourage pt to do deep breathing, spit secretion if possible. RN Gael at bedside assisted extubation. will cont to monitor pt.
[2022-03-31] VITALS (22 sets, daily range): BP systolic 120–165
[2022-03-31] MEDS: NAFCILLIN SODIUM 2 GM in NS 100 ML IV SCH ×4 (01:06→18:07)
[2022-03-31] MEDS: IPRATROPIUM/ALBUTEROL SULFATE 3 ML AMPUL.NEB (DUONEB) INH SCH ×3 (01:40→12:00)
[2022-03-31] MEDS: HYDROCORTISONE SOD SUCC 100 MG/2 ML VIAL IVP SCH ×3 (06:13→22:00)
[2022-03-31] MEDS: HEPARIN SODIUM,PORCINE 5,000 UNITS/ML VIAL SUBCUT SCH ×3 (06:14→22:00)
[2022-03-31 07:01] LABS: BASOPHILS % (AUTO) 0.5 % (0.0-2.0); EOSINOPHILS # (AUTO) 0.4 K/uL (0.0-0.4); EOSINOPHILS % (AUTO) 4.8 % (0.0-4.0); HEMATOCRIT 34.7 % (36-48); HEMOGLOBIN 12.2 g/dL (12.0-16.0); LYMPHOCYTES # (AUTO) 1.4 K/uL (1.0-5.5); LYMPHOCYTES % (AUTO) 16.8 % (20.5-51.5); MEAN CORPUSCULAR HEMOGLOBIN 32 pg (27-31); MEAN CORPUSCULAR HGB CONC 35 % (32-36); MEAN CORPUSCULAR VOLUME 92 fL (79.0-98.0); MONOCYTES # (AUTO) 0.3 K/uL (0.0-1.0); MONOCYTES % (AUTO) 3.6 % (1.7-9.3); NEUTROPHILS # (AUTO) 6.3 K/uL (1.8-7.7); NEUTROPHILS % (AUTO) 74.3 % (40.0-70.0); PLATELET COUNT (AUTO) 106 K/uL (130-430); RED BLOOD CELL COUNT(AUTO) 3.77 MIL/uL (4.2-6.2); WHITE BLOOD COUNT (AUTO) 8.4 K/uL (4.8-10.8)
--- NOTE | 2022-03-31 07:07 | NUR ---
received report from endorsing shift commander RN for continuity of care, patient lying on bed with an IVF of KCL in D5 @ 100 cc/hr. no signs of acute distress noted at this time, on 2 L of oxygen nasal cannula, Diego catheter in place draining to gravity, yellow urine in color, patient vitals heart rate 66, respiratory rate 20, oxygen saturation 93,,blood pressure 161/69. will continue to monitor.
[2022-03-31] MEDS: KCL 20 mEq in D5W 1000 mL 1,000 ML IV SCH ×2 (07:15→15:50)
[2022-03-31 08:17] LABS: ALBUMIN 2.2 g/dL (3.4-4.8); CALCIUM 7.4 mg/dL (8.4-11.0); CREATININE 0.9 mg/dL (0.55-1.30); TOTAL BILIRUBIN 0.8 mg/dL (0.0-1.0)
[2022-03-31] MEDS ORDERED: FUROSEMIDE 20 MG/2 ML VIAL IVP ONE (08:45)
[2022-03-31] MEDS: PANTOPRAZOLE SODIUM 40 MG/VIAL (PROTONIX) IVP SCH (08:47)
[2022-03-31] MEDS: LEVOTHYROXINE SODIUM 0.1 MG VIAL IVP SCH (08:50)
[2022-03-31] MEDS: INSULIN GLARGINE 100 UNITS/ML 10 ML VIAL SUBCUT SCH (08:55)
[2022-03-31] MEDS ORDERED: POTASSIUM CHLORIDE 40 MEQ in NS 250 ML IV ONE (10:00)
[2022-03-31] MEDS: ALBUTEROL MDI INHALATION 8 GM INH INH SCH ×2 (16:16→19:32)
[2022-03-31] MEDS: NORMAL SALINE 5 ML DISP.SYRIN IVF SCH (22:00)
[2022-04-01] VITALS (24 sets, daily range): BP systolic 120–162
[2022-04-01] MEDS: NAFCILLIN SODIUM 2 GM in NS 100 ML IV SCH ×4 (00:44→18:17)
[2022-04-01] MEDS: ALBUTEROL MDI INHALATION 8 GM INH INH SCH ×4 (01:21→20:15)
[2022-04-01 06:28] LABS: BASOPHILS % (AUTO) 0.2 % (0.0-2.0); EOSINOPHILS # (AUTO) 0.3 K/uL (0.0-0.4); EOSINOPHILS % (AUTO) 3.4 % (0.0-4.0); HEMATOCRIT 34.2 % (36-48); LYMPHOCYTES # (AUTO) 3.1 K/uL (1.0-5.5); LYMPHOCYTES % (AUTO) 34.5 % (20.5-51.5); MEAN CORPUSCULAR HEMOGLOBIN 32 pg (27-31); MEAN CORPUSCULAR HGB CONC 35 % (32-36); MEAN CORPUSCULAR VOLUME 92 fL (79.0-98.0); MONOCYTES # (AUTO) 0.8 K/uL (0.0-1.0); MONOCYTES % (AUTO) 8.6 % (1.7-9.3); NEUTROPHILS # (AUTO) 4.8 K/uL (1.8-7.7); NEUTROPHILS % (AUTO) 53.3 % (40.0-70.0); PLATELET COUNT (AUTO) 141 K/uL (130-430); RED BLOOD CELL COUNT(AUTO) 3.73 MIL/uL (4.2-6.2); RED CELL DISTRIBUTION WIDTH 13.2 % (9.0-15.0); WHITE BLOOD COUNT (AUTO) 8.9 K/uL (4.8-10.8)
[2022-04-01] MEDS: NORMAL SALINE 5 ML DISP.SYRIN IVF SCH ×3 (06:29→22:07)
[2022-04-01] MEDS: HEPARIN SODIUM,PORCINE 5,000 UNITS/ML VIAL SUBCUT SCH ×3 (06:29→22:07)
[2022-04-01] MEDS: HYDROCORTISONE SOD SUCC 100 MG/2 ML VIAL IVP SCH ×3 (06:29→22:05)
[2022-04-01 07:34] LABS: ALBUMIN 2.1 g/dL (3.4-4.8); CREATININE 0.9 mg/dL (0.55-1.30); TOTAL BILIRUBIN 0.8 mg/dL (0.0-1.0)
--- NOTE | 2022-04-01 07:40 | NUR ---
ON DUTY RECEIVED PT A/XO4. EXTUBATED 2 DAYS AGO, PT TOLERATED WELL. WAITING FOR TRANSFER TO TELE. STILL KEEP NPO FOR SWALLOW EVAL TODAY. NO S/S OF ACUTE DISTRESS.
[2022-04-01] MEDS: INSULIN GLARGINE 100 UNITS/ML 10 ML VIAL SUBCUT SCH (08:55)
[2022-04-01] MEDS: PANTOPRAZOLE SODIUM 40 MG/VIAL (PROTONIX) IVP SCH (08:56)
[2022-04-01 09:02] LABS: CALCIUM 7.3 mg/dL (8.4-11.0); POTASSIUM 2.5 mmol/L (3.5-5.1)
[2022-04-01] MEDS ORDERED: KCL 20 mEq in 100 mL (PREMIX) 100 ML IV ONE (10:15)
[2022-04-01] MEDS ORDERED: KCL 40 mEq in 100 mL (PREMIX) 100 ML IV ONE (12:15)
--- NOTE | 2022-04-01 16:23 | NUR ---
ST EVALUATION COMPLETED. ST TX NOT INDICATED AT THIS TIME. RECOMMEND PO DIET OF MECHANICAL SOFT AND THIN LIQUIDS. RECOMMEND DISTANT SUPERVISION AND FULL ASPIRATION PRECAUTIONS.
--- NOTE | 2022-04-01 16:53 | NUR ---
Nutrition F/U RDN reviewed pts current EMR record including diet hx, physician notes, nursing notes, pertinent labs/meds/procedures, care trends, and care activity. Admission Dx: Acute Respiratory Failure PMH: Per EMR -- 66yF [facility] 6 resident who presented to ED for increasingly altered mental status 03/24. Patient was given chest compressions in ED, intubated nasally, now intubated orally on vent. PMH includes: HTN, HLD, [place]'s dz, Hep C+, depression, osteoporosis/osteoarthritis, fibromyalgia, s/p lumbar spine Sx causing chronic pain. During admit: acute on CKD, elevated liver enzymes, thrombocytopenia, and dysphagia (given intubation/vent), respiratory failure, lactic acidosis, septic shock. SARS-CoV-2 Ag (Rapid) Positive 03/25 & COVID-19 ([facility]) Positive 03/26. Subjective information: RD attended ICU rounds this am. The patient was extubated on 03/31. Per RN, patient was NPO pending swallow eval, awake and oriented, and awaiting telly transfer. Per chart review: s/p swallow eval this afternoon 04/01, per ST: mechanical soft with thin liquids. MD notes: septic shock has resolved, and patient is feeling very hungry and thirsty. Current diet order/ Nutrition support: Cardiac, Mechanical Soft Diet with Thin Liquids x 0 day Current % PO 0% -- Patient previously NPO on TF, no meals documented d/t diet change Estimated Energy Expenditure (kcals/day) 6823-3779 (25-30 kcal/kg CBW d/t Normal BMI, vent) NEW Estimated Protein Required (g/day) 54-82 (0.8-1.2 gm/kg CBW d/t acute on CKD, acute illness) Estimated Fluid Required (l/day) Per MD d/t CKD Problem/Etiology/Signs/Symptoms * Altered nutrition-related lab values r/t suspected steroid medication a/e/b elevated glucose labs. (Ongoing w/ improvement) * Inadequate oral intake r/t TF order a/e/b current TF order provides <75% of low range est kcal needs and <60% of low range est protein needs. (Resolved) Expected Outcomes/Goals PO intake provides >85% of estimated nutrient needs, tolerate diet advancement, BM q 1-3 days, skin integrity, weight maintenance Dietitian Recommendations * Continue Cardiac diet, MSoft with Thin Liquids per ST * COVID supplements: daily renavite, 250 mg VIT C, VIT D, zincate 220 mg BID x14 days High Risk F/U in 2-3days: 04/03- 04/04
--- NOTE | 2022-04-01 16:56 | NUR ---
Dietitian Recommendations * Continue Cardiac diet, MSoft with TL per ST * COVID supplements: daily renavite, 250 mg VIT C, VIT D, zincate 220 mg BID x14 days Please see Nutrition F/U for details, thanks! CC, MPH, RDN
--- NOTE | 2022-04-01 19:00 | NUR ---
received pt from outgoing nurse, alert and oriented x 4.appears drowsy.vitals updated,fall precautions maintained
--- NOTE | 2022-04-01 19:55 | NUR ---
DR. ROOSEVELT KATZ PAGED AT THIS TIME FOR ORDERS. SPOKE WITH GARDENIA AT THE EXCHANGE.
[2022-04-02] VITALS (15 sets, daily range): BP systolic 127–163
--- NOTE | 2022-04-02 | NUR ---
Asleep ,vitals acceptable.pt verbalize understanding of care given
[2022-04-02] MEDS: NAFCILLIN SODIUM 2 GM in NS 100 ML IV SCH ×5 (00:03→23:43)
[2022-04-02] MEDS: ALBUTEROL MDI INHALATION 8 GM INH INH SCH ×4 (01:04→19:57)
--- NOTE | 2022-04-02 06:00 | NUR ---
bed bath given and linen changed ,educated on medications, is alert and oriented x 4
[2022-04-02 06:10] LABS: BASOPHILS % (AUTO) 0.1 % (0.0-2.0); EOSINOPHILS # (AUTO) 0.1 K/uL (0.0-0.4); EOSINOPHILS % (AUTO) 0.6 % (0.0-4.0); HEMATOCRIT 34.8 % (36-48); HEMOGLOBIN 12.1 g/dL (12.0-16.0); LYMPHOCYTES # (AUTO) 1.2 K/uL (1.0-5.5); LYMPHOCYTES % (AUTO) 8.7 % (20.5-51.5); MEAN CORPUSCULAR HEMOGLOBIN 32 pg (27-31); MEAN CORPUSCULAR HGB CONC 35 % (32-36); MEAN CORPUSCULAR VOLUME 91 fL (79.0-98.0); MONOCYTES # (AUTO) 0.6 K/uL (0.0-1.0); NEUTROPHILS % (AUTO) 86.6 % (40.0-70.0); PLATELET COUNT (AUTO) 163 K/uL (130-430); RED BLOOD CELL COUNT(AUTO) 3.82 MIL/uL (4.2-6.2); RED CELL DISTRIBUTION WIDTH 13.6 % (9.0-15.0); WHITE BLOOD COUNT (AUTO) 13.8 K/uL (4.8-10.8)
[2022-04-02] MEDS: HYDROCORTISONE SOD SUCC 100 MG/2 ML VIAL IVP SCH ×3 (06:18→21:31)
[2022-04-02] MEDS: HEPARIN SODIUM,PORCINE 5,000 UNITS/ML VIAL SUBCUT SCH ×3 (06:23→21:32)
[2022-04-02] MEDS: NORMAL SALINE 5 ML DISP.SYRIN IVF SCH ×3 (06:24→21:39)
[2022-04-02] MEDS: LEVOTHYROXINE SODIUM 0.15 MG TABLET PO SCH (06:33)
[2022-04-02 07:26] LABS: ALBUMIN 2.4 g/dL (3.4-4.8); CALCIUM 7.4 mg/dL (8.4-11.0); CREATININE 0.89 mg/dL (0.55-1.30); TOTAL BILIRUBIN 1.1 mg/dL (0.0-1.0)
[2022-04-02] MEDS: INSULIN GLARGINE 100 UNITS/ML 10 ML VIAL SUBCUT SCH (08:37)
[2022-04-02] MEDS: PANTOPRAZOLE SODIUM 40 MG/VIAL (PROTONIX) IVP SCH (08:40)
[2022-04-02] MEDS ORDERED: KCL 40 mEq in 100 mL (PREMIX) 100 ML IV ONE (09:15)
[2022-04-02] MEDS: POTASSIUM CHLORIDE 20 MEQ/PKT PACKET PO SCH ×2 (09:35→21:31)
--- NOTE | 2022-04-02 11:40 | NUR ---
RN NOTES SPOKE TO DR. GIBSON, PATIENT DOWNGRADED TO TELEMETRY.
--- NOTE | 2022-04-02 12:15 | NUR ---
CARE ENDORSED SBAR PROVIDED TO REYNA RÍOS FOR ROOM 115A TELEMETRY. PT VSS. NAD NOTED. END OF CARE.
--- NOTE | 2022-04-02 13:25 | NUR ---
TRANSFERRED FROM ICU RECEIVED PT FROM ICU. VITALS STABLE NOT IN . ACUTE DISTRESS.A/OX4. HOB ELEVATED. CONTINUE ON 2 L NC SATURATION 96%. POC DISCUSSED WIT PT . PT VERBALIZED UNDERSTANDING. SAFETY AND FALL PRECAUTIONS IN PLACE. .WILL CONITNUE TO MONITOR
--- NOTE | 2022-04-02 19:00 | NUR ---
CLOSING NOTES PT STABLE NOT IN ACUTE DISTRESS. EATING DINNER. CONTINUE ON 2 L OXYGEN. VITALS STABLE. DENEIS ANY PAIN OR SOB AT THIS TIME. NEEDS ATTENDED.
--- NOTE | 2022-04-02 19:30 | NUR ---
Opening note Received report from day shift. Pt is awake resting in bed watching TV. No s/s of respiratory distress. Breathing even and unlabored on 2L nasal cannula. Diego catheter intact and draining by gravity. Right IJ IV intact and patent saline lock. Fall and safety precautions in place with bed in lowest position, bed alarm on, and call light within reach
--- NOTE | 2022-04-03 00:15 | NUR ---
Rounds Pt resting in bed, eyes closed. No s/s of acute distress. VSS. Fall and safety checks in place
[2022-04-03 01:05] VITALS: BP_SYST 111
[2022-04-03 01:08] VITALS: BP_SYST 112
[2022-04-03] MEDS ORDERED: CITA20TA16 PO (02:27)
[2022-04-03] MEDS ORDERED: LOPE-178 PO (02:27)
[2022-04-03] MEDS ORDERED: FLOR.1 PO (02:27)
[2022-04-03] MEDS ORDERED: PRO40 PO (02:27)
[2022-04-03] MEDS: ALBUTEROL MDI INHALATION 8 GM INH INH SCH ×4 (03:13→19:40)
[2022-04-03] MEDS: HYDROCORTISONE SOD SUCC 100 MG/2 ML VIAL IVP SCH (06:19)
[2022-04-03] MEDS: LEVOTHYROXINE SODIUM 0.15 MG TABLET PO SCH (06:19)
[2022-04-03] MEDS: HEPARIN SODIUM,PORCINE 5,000 UNITS/ML VIAL SUBCUT SCH ×3 (06:22→21:37)
[2022-04-03] MEDS: NORMAL SALINE 5 ML DISP.SYRIN IVF SCH ×3 (06:22→21:34)
[2022-04-03] MEDS: NAFCILLIN SODIUM 2 GM in NS 100 ML IV SCH (06:24)
[2022-04-03 06:41] LABS: BASOPHILS # (AUTO) 0.1 K/uL (0.0-0.2); BASOPHILS % (AUTO) 0.5 % (0.0-2.0); EOSINOPHILS # (AUTO) 0.1 K/uL (0.0-0.4); EOSINOPHILS % (AUTO) 0.8 % (0.0-4.0); LYMPHOCYTES # (AUTO) 2.2 K/uL (1.0-5.5); MEAN CORPUSCULAR HEMOGLOBIN 33 pg (27-31); MEAN CORPUSCULAR HGB CONC 35 % (32-36); MEAN CORPUSCULAR VOLUME 92 fL (79.0-98.0); MONOCYTES # (AUTO) 0.6 K/uL (0.0-1.0); MONOCYTES % (AUTO) 5.4 % (1.7-9.3); NEUTROPHILS % (AUTO) 75.3 % (40.0-70.0); PLATELET COUNT (AUTO) 175 K/uL (130-430); WHITE BLOOD COUNT (AUTO) 11.9 K/uL (4.8-10.8)
[2022-04-03 07:08] LABS: ALBUMIN 2.5 g/dL (3.4-4.8); CALCIUM 7.5 mg/dL (8.4-11.0); CREATININE 0.82 mg/dL (0.55-1.30); PHOSPHORUS 2.9 mg/dL (2.7-4.5); TOTAL BILIRUBIN 0.8 mg/dL (0.0-1.0)
[2022-04-03 08:00] VITALS: BP_SYST 111
[2022-04-03 08:53] LABS: POTASSIUM 2.5 mmol/L (3.5-5.1)
[2022-04-03] MEDS: POTASSIUM CHLORIDE 20 MEQ/PKT PACKET PO SCH ×2 (09:22→21:00)
[2022-04-03] MEDS: PANTOPRAZOLE SODIUM 40 MG/VIAL (PROTONIX) IVP SCH (09:22)
[2022-04-03] MEDS: MULTIVITS,CA,MINERALS/IRON/FA 1 TABLET PO SCH (09:22)
[2022-04-03] MEDS: CHOLECALCIFEROL (VITAMIN D3) 2,000 UNIT TABLET PO SCH (09:22)
[2022-04-03 12:22] VITALS: BP_SYST 132
--- NOTE | 2022-04-03 14:05 | NUR ---
Discharge Planning: DCP faxed pt referral to [facility] P#[phone]. DCP to follow up
[2022-04-03 16:40] VITALS: BP_SYST 134
[2022-04-03] MEDS ORDERED: POTASSIUM CHLORIDE 20 MEQ TAB.PRT.SR PO ONE (18:15)
--- NOTE | 2022-04-03 18:30 | NUR ---
tried to call the patient's brother darling at tel # [phone] but the number the patient gives does not go through gives us a busy signal MD trying to update the brother of patient's condition but telephone nmber that was given was not working.
--- NOTE | 2022-04-03 19:30 | NUR ---
Opening note Received report from day shift. Pt is awake resting in bed watching TV. No s/s of respiratory distress. Breathing even and unlabored on 2L nasal cannula saturating 96-97%.. Diego catheter intact and draining by gravity. Right IJ IV intact and patent saline lock. Fall and safety precautions in place with bed in lowest position, bed alarm on, and call light within reach.
[2022-04-03 20:00] VITALS: BP_SYST 140
[2022-04-03] MEDS ORDERED: HYDROCORTISONE SOD SUCC 100 MG/2 ML VIAL IVP SCH (21:00)
[2022-04-03] MEDS: DOXYCYCLINE HYCLATE 100 MG CAPSULE PO SCH (21:34)
[2022-04-03] MEDS: HYDROCORTISONE 10 MG TABLET (CORTEF) PO SCH (21:34)
[2022-04-04] VITALS: BP_SYST 135
--- NOTE | 2022-04-04 00:15 | NUR ---
Rounds Pt resting in bed, eyes closed. No s/s of acute distress. VSS. Fall and safety checks in place
[2022-04-04] MEDS: NORMAL SALINE 5 ML DISP.SYRIN IVF SCH ×3 (06:30→21:57)
[2022-04-04] MEDS: LEVOTHYROXINE SODIUM 0.15 MG TABLET PO SCH (06:30)
[2022-04-04] MEDS: HEPARIN SODIUM,PORCINE 5,000 UNITS/ML VIAL SUBCUT SCH ×3 (06:31→21:57)
[2022-04-04 06:42] LABS: BASOPHILS % (AUTO) 0.4 % (0.0-2.0); EOSINOPHILS # (AUTO) 0.2 K/uL (0.0-0.4); EOSINOPHILS % (AUTO) 1.9 % (0.0-4.0); HEMATOCRIT 32.4 % (36-48); HEMOGLOBIN 11.5 g/dL (12.0-16.0); LYMPHOCYTES # (AUTO) 1.8 K/uL (1.0-5.5); LYMPHOCYTES % (AUTO) 21.5 % (20.5-51.5); MEAN CORPUSCULAR HEMOGLOBIN 32 pg (27-31); MEAN CORPUSCULAR HGB CONC 35 % (32-36); MEAN CORPUSCULAR VOLUME 91 fL (79.0-98.0); MONOCYTES # (AUTO) 0.6 K/uL (0.0-1.0); MONOCYTES % (AUTO) 7.2 % (1.7-9.3); NEUTROPHILS # (AUTO) 5.7 K/uL (1.8-7.7); PLATELET COUNT (AUTO) 162 K/uL (130-430); RED BLOOD CELL COUNT(AUTO) 3.55 MIL/uL (4.2-6.2); RED CELL DISTRIBUTION WIDTH 14.5 % (9.0-15.0); WHITE BLOOD COUNT (AUTO) 8.3 K/uL (4.8-10.8)
--- NOTE | 2022-04-04 07:00 | NUR ---
Closing note Pt awake lying in bed watching Tv. No s/s of respiratory distress. Breathing even and unlabored on 2L nasal cannula. L IJ IV intact and patent saline lock. Diego catheter intact and draining by gravity. Fall and safety precautions in place with bed in lowest position, bed alarm on, and call light within reach. All needs met throughout shift. Will endorse care to day shift nurse
[2022-04-04 07:07] LABS: ALBUMIN 2.4 g/dL (3.4-4.8); CALCIUM 7.4 mg/dL (8.4-11.0); CREATININE 0.71 mg/dL (0.55-1.30); TOTAL BILIRUBIN 0.8 mg/dL (0.0-1.0)
[2022-04-04] MEDS: ALBUTEROL MDI INHALATION 8 GM INH INH SCH ×4 (07:18→18:00)
[2022-04-04 07:51] LABS: POTASSIUM 2.6 mmol/L (3.5-5.1)
[2022-04-04 08:00] VITALS: BP_SYST 144
[2022-04-04] MEDS: POTASSIUM CHLORIDE 20 MEQ/PKT PACKET PO SCH ×5 (09:00→21:58)
--- NOTE | 2022-04-04 10:07 | NUR ---
Discharge Planing: DCP faxed pt referral to [facility] [phone], [facility] [phone], [facility] [phone]. DCP to follow up Addendum: 04/04/22 at 1636 by aMrianela Atkinson DP Per Steven nielsen cases taken at this time at [facility] [phone].
[2022-04-04] MEDS: PANTOPRAZOLE SODIUM 40 MG/VIAL (PROTONIX) IVP SCH (10:58)
[2022-04-04] MEDS: DOXYCYCLINE HYCLATE 100 MG CAPSULE PO SCH ×2 (10:58→21:57)
[2022-04-04] MEDS: MULTIVITS,CA,MINERALS/IRON/FA 1 TABLET PO SCH (10:58)
[2022-04-04] MEDS: CHOLECALCIFEROL (VITAMIN D3) 2,000 UNIT TABLET PO SCH (10:58)
[2022-04-04 12:00] VITALS: BP_SYST 144
[2022-04-04] MEDS ORDERED: KCL 20 mEq in 100 mL (PREMIX) 100 ML IV ONE (12:41)
[2022-04-04] MEDS: HYDROCORTISONE 10 MG TABLET (CORTEF) PO SCH ×2 (12:45→21:57)
[2022-04-04] MEDS ORDERED: MAGNESIUM SULFATE 50 ML IV ONE (14:00)
[2022-04-04] MEDS: LOPERAMIDE HCL 2 MG CAPSULE PO PRN (14:56)
[2022-04-04 16:00] VITALS: BP_SYST 144
[2022-04-04] MEDS: POTASSIUM CHLORIDE 40 MEQ in 0.45% NS 250 ML IV SCH ×2 (17:30→17:36)
[2022-04-04 21:00] VITALS: BP_SYST 122
[2022-04-04] MEDS ORDERED: POTASSIUM CHLORIDE 20 MEQ TAB.PRT.SR PO SCH (21:00)
[2022-04-05] VITALS: BP_SYST 103
[2022-04-05 06:53] LABS: BASOPHILS # (AUTO) 0.1 K/uL (0.0-0.2); BASOPHILS % (AUTO) 0.6 % (0.0-2.0); EOSINOPHILS # (AUTO) 0.1 K/uL (0.0-0.4); EOSINOPHILS % (AUTO) 1.1 % (0.0-4.0); HEMOGLOBIN 11.5 g/dL (12.0-16.0); LYMPHOCYTES # (AUTO) 1.2 K/uL (1.0-5.5); LYMPHOCYTES % (AUTO) 14.7 % (20.5-51.5); MEAN CORPUSCULAR HEMOGLOBIN 33 pg (27-31); MEAN CORPUSCULAR HGB CONC 36 % (32-36); MEAN CORPUSCULAR VOLUME 92 fL (79.0-98.0); MONOCYTES # (AUTO) 0.5 K/uL (0.0-1.0); MONOCYTES % (AUTO) 6.1 % (1.7-9.3); NEUTROPHILS # (AUTO) 6.5 K/uL (1.8-7.7); NEUTROPHILS % (AUTO) 77.5 % (40.0-70.0); PLATELET COUNT (AUTO) 161 K/uL (130-430); RED BLOOD CELL COUNT(AUTO) 3.48 MIL/uL (4.2-6.2); RED CELL DISTRIBUTION WIDTH 14.8 % (9.0-15.0); WHITE BLOOD COUNT (AUTO) 8.4 K/uL (4.8-10.8)
[2022-04-05] MEDS: LEVOTHYROXINE SODIUM 0.15 MG TABLET PO SCH (06:57)
[2022-04-05] MEDS: NORMAL SALINE 5 ML DISP.SYRIN IVF SCH ×2 (06:57→14:39)
[2022-04-05] MEDS: HEPARIN SODIUM,PORCINE 5,000 UNITS/ML VIAL SUBCUT SCH ×3 (07:00→22:00)
--- NOTE | 2022-04-05 07:20 | NUR ---
RN OPENING NOTE REPORT WAS ENDORSED BY NIGHT NURSE. PATIENT IS AWAKE AND ALERT SITTING UP IN BED, NO SIGNS OF ANY DISTRESS, BREATHING IS EQUAL AND NON LABORED. PATIENT HAS NO OTHER NEEDS AT THIS TIME.
[2022-04-05 07:50] LABS: CALCIUM 7.7 mg/dL (8.4-11.0); CREATININE 0.79 mg/dL (0.55-1.30); POTASSIUM 3.3 mmol/L (3.5-5.1)
[2022-04-05] MEDS: ALBUTEROL MDI INHALATION 8 GM INH INH SCH ×4 (07:50→18:00)
[2022-04-05 08:00] VITALS: BP_SYST 142
[2022-04-05] MEDS: PANTOPRAZOLE SODIUM 40 MG/VIAL (PROTONIX) IVP SCH (09:41)
[2022-04-05] MEDS: HYDROCORTISONE 10 MG TABLET (CORTEF) PO SCH (09:42)
[2022-04-05] MEDS: POTASSIUM CHLORIDE 20 MEQ/PKT PACKET PO SCH ×3 (09:42→17:00)
[2022-04-05] MEDS: DOXYCYCLINE HYCLATE 100 MG CAPSULE PO SCH (09:42)
[2022-04-05] MEDS: MULTIVITS,CA,MINERALS/IRON/FA 1 TABLET PO SCH (09:42)
[2022-04-05] MEDS: CHOLECALCIFEROL (VITAMIN D3) 2,000 UNIT TABLET PO SCH (09:42)
[2022-04-05] MEDS: LOPERAMIDE HCL 2 MG CAPSULE PO PRN (09:52)
--- NOTE | 2022-04-05 09:53 | NUR ---
medication patient scheduled medication given per order. at bedside. patient educated director prison light for assistance. call light is with her. patient complains of diarrhea medicated per order. no other needs at this time.
[2022-04-05 12:00] VITALS: BP_SYST 130
--- NOTE | 2022-04-05 13:04 | NUR ---
Discharge Planning: [facility] faxed pt referral to [facility] [phone] [facility] requested a rapid covid test. DCP to follow up. Addendum: 04/05/22 at 1616 by Marianela Atkinson DP [facility] # for report [phone] accepted pt to [facility], spoke to Laney at [facility] [phone] auth was given to [facility]. Call the Car [phone] for transportation. [facility] made nurse aware and patient packet taken to nurse station.
--- NOTE | 2022-04-05 13:56 | NUR ---
medication Addendum: 04/05/22 at 1552 by Darling Adams RN PATIENTS SCHEDULED MEDICATION GIVEN PER ORDER.NO OTHER NEEDS AT THIS TIME. CALL BRANDY IS WITH HER EDUCATED TO USE FOR ASSISTANCE. PATIENT IS ON PHONE WITH FAMILY
--- NOTE | 2022-04-05 15:51 | NUR ---
DR. GIBSON SPOKE WITH RECEIVED ORDERS.
--- NOTE | 2022-04-05 16:18 | NUR ---
SINGH CATHETER REMOVED, CATHETER INTACT
[2022-04-05 16:41] VITALS: BP_SYST 140
--- NOTE | 2022-04-05 17:02 | NUR ---
jase sosa Addendum: 04/05/22 at 1708 by Darling Adams RN ORDERS RECEIVED BY
[2022-04-05] MEDS ORDERED: POTASSIUM CHLORIDE 20 MEQ TAB.PRT.SR PO ONE (17:30)
--- NOTE | 2022-04-05 17:46 | NUR ---
DEBI JOHANSEN ORDERS
--- NOTE | 2022-04-05 19:16 | NUR ---
rn closing note patient is awake and alert using restroom is voiding and bowel moment. patient able to ambulate to bathroom and back to bed. patient educated industrial relations representative light for assistance. call light is with her. no other needs at this time. patient has no complaints at this time.
[2022-04-05 20:00] VITALS: BP_SYST 132
[2022-04-06 00:17] VITALS: BP_SYST 99
[2022-04-06] MEDS: DOXYCYCLINE HYCLATE 100 MG CAPSULE PO SCH ×2 (03:11→09:20)
[2022-04-06] MEDS: HYDROCORTISONE 10 MG TABLET (CORTEF) PO SCH ×2 (03:12→15:07)
[2022-04-06] MEDS: NORMAL SALINE 5 ML DISP.SYRIN IVF SCH ×3 (03:13→15:08)
[2022-04-06 04:00] VITALS: BP_SYST 135
[2022-04-06] MEDS: ALBUTEROL MDI INHALATION 8 GM INH INH SCH ×3 (06:00→12:00)
[2022-04-06 07:36] LABS: BASOPHILS # (AUTO) 0.1 K/uL (0.0-0.2); BASOPHILS % (AUTO) 1.2 % (0.0-2.0); EOSINOPHILS # (AUTO) 0.1 K/uL (0.0-0.4); HEMATOCRIT 31.7 % (36-48); HEMOGLOBIN 11.2 g/dL (12.0-16.0); LYMPHOCYTES # (AUTO) 1.3 K/uL (1.0-5.5); LYMPHOCYTES % (AUTO) 19.9 % (20.5-51.5); MEAN CORPUSCULAR HEMOGLOBIN 33 pg (27-31); MEAN CORPUSCULAR HGB CONC 35 % (32-36); MEAN CORPUSCULAR VOLUME 93 fL (79.0-98.0); MONOCYTES # (AUTO) 0.5 K/uL (0.0-1.0); MONOCYTES % (AUTO) 7.5 % (1.7-9.3); NEUTROPHILS # (AUTO) 4.6 K/uL (1.8-7.7); NEUTROPHILS % (AUTO) 69.4 % (40.0-70.0); PLATELET COUNT (AUTO) 167 K/uL (130-430); RED BLOOD CELL COUNT(AUTO) 3.41 MIL/uL (4.2-6.2); RED CELL DISTRIBUTION WIDTH 15.3 % (9.0-15.0); WHITE BLOOD COUNT (AUTO) 6.6 K/uL (4.8-10.8)
[2022-04-06 08:00] VITALS: BP_SYST 131
[2022-04-06 08:13] LABS: ALBUMIN 2.9 g/dL (3.4-4.8); CREATININE 0.86 mg/dL (0.55-1.30); POTASSIUM 3.2 mmol/L (3.5-5.1)
[2022-04-06] MEDS: LEVOTHYROXINE SODIUM 0.15 MG TABLET PO SCH (08:29)
[2022-04-06] MEDS: HEPARIN SODIUM,PORCINE 5,000 UNITS/ML VIAL SUBCUT SCH ×2 (08:37→15:19)
--- NOTE | 2022-04-06 08:57 | NUR ---
Nutrition F/U EMR review including diet hx, physician notes, nursing notes, pertinent labs/meds/procedures, care trends, and care activity. Admission Dx: Acute Respiratory Failure PMH: HTN, HLD, [place]'s dz, Hep C+, depression, osteoporosis/osteoarthritis, fibromyalgia, s/p lumbar spine Sx causing chronic pain. Per notes: 66yF [facility] 6 resident who presented to ED for increasingly altered mental status 03/24. Patient was given chest compressions in ED, intubated nasally, then orally, and placed on vent. During admit: acute on CKD, elevated liver enzymes, thrombocytopenia, and dysphagia (given intubation/vent), respiratory failure, lactic acidosis, septic shock. NEW SARS-CoV-2 Ag (Rapid) negative 04/05/22 @ 1030. SARS-CoV-2 Ag (Rapid) Positive 03/25 & COVID-19 ([facility]) Positive 03/26. Subjective information: Per EMR review, noted w/ negative COVID test on 04/05 although remains in an isolation room, DC planning per MD order, per clinical case manager note 04/05, plan to discharge to [facility]. The patient was extubated on 03/31, s/p dysphagia eval on 04/01, per ST note, recommendation for mechanical soft diet w/ thin liquids, distant supervision, full aspiration precautions. LBM 04/05 x1, loose, abdomen is soft/non-distended, hyperactive bowel sounds. 04/04 stool negative for Shiga toxin, 03/30 stool negative for C.diff. Current diet order/ Nutrition support: Cardiac, Mechanical Soft Diet with Thin Liquids x 4 days Current % PO 25-100% PO intake x12 meals recorded, PO intake ~30% on average 04/02-04/06 Estimated Energy Expenditure (kcals/day) 1501-3949 (25-30 kcal/kg CBW d/t Normal BMI) NEW Estimated Protein Required (g/day) 54-82 (0.8-1.2 gm/kg CBW d/t acute on chronic CKD) Estimated Fluid Required (l/day) Per MD d/t CKD Problem/Etiology/Signs/Symptoms *RESOLVED Altered nutrition-related lab values r/t suspected steroid medication a/e/b elevated glucose labs *REVISED Inadequate oral intake R/T variable PO intake AEB PO intake ~30% on average Expected Outcomes/Goals PO intake meets >85% of estimated nutrient needs, tolerate diet advancement, BM q 1-3 days, skin integrity, weight maintenance Dietitian Recommendations * Continue Cardiac diet, MSoft with Thin Liquids per ST recommendation * Consider Ensure Enlive ONS BID to supplement diet until PO intake is ~85% on average * Continue multivitamin w/ minerals, vitamin D3 Moderte risk F/U in 3-5 days: 04/09-04/11
[2022-04-06] MEDS ORDERED: POTASSIUM CHLORIDE 20 MEQ TAB.PRT.SR PO SCH (09:00)
[2022-04-06] MEDS: CHOLECALCIFEROL (VITAMIN D3) 2,000 UNIT TABLET PO SCH (09:20)
[2022-04-06] MEDS: PANTOPRAZOLE SODIUM 40 MG/VIAL (PROTONIX) IVP SCH (09:20)
[2022-04-06] MEDS: MULTIVITS,CA,MINERALS/IRON/FA 1 TABLET PO SCH (09:20)
--- NOTE | 2022-04-06 09:20 | NUR ---
Dietitian Recommendations * Continue Cardiac diet, MSoft with thin liquids per ST recommendation * Consider Ensure Enlive ONS BID to supplement diet until PO intake is ~85% on average * Continue multivitamin w/ minerals, vitamin D3 Please refer to nutrition assessment for details. PS, RD
[2022-04-06 12:00] VITALS: BP_SYST 136
[2022-04-06] MEDS ORDERED: DOXY100C5 PO (14:14)
[2022-04-06] MEDS ORDERED: MULT-1145 PO (14:14)
[2022-04-06] MEDS ORDERED: POTA-197 PO ×2 (14:14→14:52)
[2022-04-06] MEDS ORDERED: VITD2000 PO (14:14)
[2022-04-06] MEDS ORDERED: POTASSIUM CHLORIDE 20 MEQ TAB.PRT.SR PO ONE (15:00)
--- NOTE | 2022-04-06 15:06 | NUR ---
CM: discussed discharge plan with patient at bedside. Informed her that [facility] is accepting her and there is bed available today. The pt declined going to snf, said " definitely not going there". She wants to go home only. Addendum: 04/06/22 at 1628 by Karina Joy RN Also informed pt the Home health follow up /PT and FWW can be arranged for her as well. The pt stated she does not see any need for the HH/PT. Stated she can walk in room back and forth with no difficulty and her boy friend (lives with pt) can help her as needed. As for FWW, Cm can not promise to get the FWW for her today because the authorization is required from [employer] insurance. But the pt wanted to go home today, she said that she can buy or get one from a friend. She will call her boy friend to take her home, MICHOACANO [facility] made aware.
[2022-04-06 15:26] VITALS: BP_SYST 136
--- NOTE | 2022-04-06 15:27 | NUR ---
D/c'd left IJ TLC per protocol, no hematoma, no bleeding, gauze pressure drsg applied and pt remained flat for 20minutes. Instructed pt to remove drsg tomorrow and applied antibiotic ointment and small bandage. pt verbalized understanding.
--- NOTE | 2022-04-06 16:28 | NUR ---
Dispo code 01 ( the pt declined snf and HH , she will buy own FWW. )
--- NOTE | 2022-04-06 17:37 | NUR ---
PT DC'D FROM HOSPITAL AT 1556. LEFT MESSAGE ON PT'S CELL PHONE #[phone]. INSTRUCTED HER TO CALL DR. BAH'S OFFICE AT [phone] FOR AN APPOINTMENT IN 1 WEEK. ALSO INSTRUCTED PT TO CALL PRIMARY CARE PROVIDER TO HAVE BMP DRAWN ON FRIDAY. SPOKE WITH BROTHER, TERESA, WELL.
== END 2022-04-06 16:00 | disposition home health service (06) | DRG 720 ==
LOC: SED 01:31 → SIC 05:46 → STU 04-02 13:55
PROVIDERS: ADMIT Family Medicine; ATTEND Family Medicine
PROC: 0BH17EZ Insertion of Endotracheal Airway into Trachea, Via Natural or Artificial Opening (ICD-10-PCS; principal; 2022-03-24)
PROC: 5A1955Z Respiratory Ventilation, Greater than 96 Consecutive Hours (ICD-10-PCS; 2022-03-24)
PROC: 0B9F8ZX Drainage of Right Lower Lung Lobe, Via Natural or Artificial Opening Endoscopic, Diagnostic (ICD-10-PCS; 2022-03-24)
PROC: 4A10X4Z Monitoring of Central Nervous Electrical Activity, External Approach (ICD-10-PCS; 2022-03-25)
DX: A41.01 Sepsis due to Methicillin susceptible Staphylococcus aureus (principal); J96.01 Acute respiratory failure with hypoxia; K72.00 Acute and subacute hepatic failure without coma; I46.9 Cardiac arrest, cause unspecified; J12.82 Pneumonia due to coronavirus disease 2019; E43 Unspecified severe protein-calorie malnutrition; U07.1 COVID-19; J15.211 Pneumonia due to Methicillin susceptible Staphylococcus aureus; R65.21 Severe sepsis with septic shock; G93.41 Metabolic encephalopathy; E87.2 Acidosis; N17.9 Acute kidney failure, unspecified; D69.6 Thrombocytopenia, unspecified; G93.1 Anoxic brain damage, not elsewhere classified; E03.9 Hypothyroidism, unspecified; J93.9 Pneumothorax, unspecified; R13.10 Dysphagia, unspecified; I21.A1 Myocardial infarction type 2; E16.2 Hypoglycemia, unspecified; E87.6 Hypokalemia; E27.1 Primary adrenocortical insufficiency; J98.2 Interstitial emphysema; R74.01 Elevation of levels of liver transaminase levels; Z78.9 Other specified health status; Z79.899 Other long term (current) drug therapy
CPT/HCPCS: 36415; 36600; 70450-TC; 70490; 71045; 71250-TC; 76376; 80048; 80053; 80307; 81000; 82533; 82803-TC; 82962; 83036; 83605; 83615; 83690; 83735; 83880; 84100; 84132; 84311; 84439; 84443; 84484; 85007; 85025; 85027; 85379; 85610-TC; 85730-TC; 86140; 87040; 87045-TC; 87046; 87070-TC; 87081; 87186-TC; 87205-TC; 87230-TC; 89055; 92610-GN; 92950; 93005; 93306; 94002; 94003; 94640; 94664; 94760; 95816; 96361; 96374; 96375; 97110-GP; 97116-GP; 97163-GP; 97530-GP; 99291; 99292; C9113; G0378; G0480; G0481; G0482; J0456; J0696; J1644; J1720; J1815; J1885; J1940; J2405; J2543; J2704; J3262; J3370; J3475; J3480; J3490; J7040; J7050; J7060; P9046; U0003